=== PATIENT | male | born 2000 | race Caucasian/White ===

== ENCOUNTER 2025-02-12 23:15 | Emergency (ER) | payer OTHER ==
[~2025-02-12] VITALS: Ht 172.7 cm; Wt 81.0 kg
[2025-02-12 23:18] VITALS: O2SAT 95
[2025-02-13 01:18] VITALS: BP 128/92; PULSE 91; RESP 16; TEMP 36.6; O2SAT 100
== END 2025-02-13 01:18 | disposition home or self-care (01) ==
LOC: ER 23:15
DX: R11.2 Nausea with vomiting, unspecified (principal); T51.0X1A Toxic effect of ethanol, accidental (unintentional), initial encounter; Y90.9 Presence of alcohol in blood, level not specified; Y92.89 Other specified places as the place of occurrence of the external cause
CPT/HCPCS: 99283